=== PATIENT | male | born 1955 | race Caucasian/White ===

== ENCOUNTER 2018-01-12 16:05 | Emergency (ER) | payer OTHER ==
[~2018-01-12] VITALS: Ht 177.8 cm; Wt 95.3 kg
[2018-01-12 16:15] VITALS: BP 120/80
[2018-01-13] MEDS ORDERED: ZOFRAN ODT4 M1 SL (13:05)
[2018-01-13] MEDS ORDERED: CIPRO500 M1 PO (13:05)
== END 2018-01-12 17:52 | disposition admitted as inpatient to this hospital (09) ==
LOC: ERH 16:05
DX: R31.9 Hematuria, unspecified (principal)
CPT/HCPCS: 81001; 87086; 99281